=== PATIENT | female | born 1990 | race Caucasian/White ===

== ENCOUNTER → 2020-07-01 09:16 | Outpatient (CLI) | payer BC, SELFPAY ==
[2020-07-02 08:03] LABS: Mumps Virus IgG Antibody 59.8 AU/mL (Immune >10.9)
== END ==
PROVIDERS: PCP Family Medicine; Referring Provider Family Medicine; Visit Provider Family Medicine
DX: Z11.59 Encounter for screening for other viral diseases (principal); Z11.9 Encounter for screening for infectious and parasitic diseases, unspecified
CPT/HCPCS: 36415; 86735; 86765

== ENCOUNTER → 2021-10-15 10:08 | Outpatient (CLI) | payer OTHER, SELFPAY ==
[2021-10-15 11:32] LABS: Add Manual Diff / Slide Review NO; Basophils Absolute Auto 0 /uL (0-100); Basophils Percent Auto 0.6 % (0-2); Eosinophils Absolute Auto 100 /uL (0-450); Eosinophils Percent Auto 1.4 % (2-4); Hematocrit 40.4 % (36-46); Hemoglobin 13.6 g/dL (12.0-16.0); Lymphocytes Absolute Auto 1600 /uL (1100-4500); Lymphocytes Percent Auto 30.6 % (25-40); Mean Corpuscular HGB Conc 33.7 % (30-36); Mean Corpuscular Hemoglobin 26.9 PG (26-34); Mean Corpuscular Volume 79.9 fL (80-100); Monocytes Absolute Auto 400 /uL (0-900); Monocytes Percent Auto 7.6 % (3-14); Neutrophils Absolute Auto 3100 /uL (1500-7000); Neutrophils Percent Auto 59.8 % (50-75); Platelet Count 203 X10^3/uL (150-400); Red Blood Cell Count 5.05 X10^6/uL (4.0-5.2); Red Cell Distribution Width 12.9 % (11.6-14.8); White Blood Cell Count 5.2 X10^3/uL (4.5-11.0)
[2021-10-15 11:51] LABS: Alanine Aminotransferase 13 IU/L (<35); Albumin Globulin Ratio 1.5 (1.0-2.8); Alkaline Phosphatase 46 U/L (38-126); Aspartate Aminotransferase 17 IU/L (14-36); BUN Creatinine Ratio 20.4 (6-22); Bilirubin Total 0.5 mg/dL (0.2-1.3); Blood Urea Nitrogen 11 mg/dL (7-17); Calcium 9.2 mg/dL (8.4-10.2); Carbon Dioxide 29 mmol/L (22-32); Chloride 106 mmol/L (98-107); Estimated Glomerular Filt Rate > 60.0 mL/min (>60); Globulin 2.7 g/dL (1.7-4.1); Glucose 102 mg/dL (70-100); HEMOLYSIS < 15 (0-50); Magnesium 1.9 mg/dL (1.6-2.3); Potassium 4.3 mmol/L (3.4-5.1); Sodium 137 mmol/L (137-145); Total Protein 6.7 g/dL (6.3-8.2)
[2021-10-15 12:30] LABS: TSH w/ Reflex to FT4 0.13 uIU/mL (0.47-4.68)
[2021-10-15 12:55] LABS: Free T4, Direct Thyroxine 1.29 ng/dL (0.78-2.19)
== END ==
PROVIDERS: PCP Family Medicine; Referring Provider Family Medicine; Visit Provider Family Medicine
DX: R00.0 Tachycardia, unspecified (principal)
CPT/HCPCS: 36415; 80053; 83735; 84439; 84443; 85025

== ENCOUNTER → 2021-10-30 09:28 | Outpatient (CLI) | payer OTHER, SELFPAY ==
[2021-10-30 11:07] LABS: COVID19 -Nasal RAPID Negative (Negative)
== END ==
PROVIDERS: PCP Family Medicine; Visit Provider Family Medicine Sleep Medicine
DX: Z20.822 Contact with and (suspected) exposure to COVID-19 (principal)
CPT/HCPCS: 87635; C9803

== ENCOUNTER → 2021-11-02 12:50 | Outpatient (CLI) | payer OTHER, SELFPAY ==
--- NOTE | 2021-11-02 14:22 | PM.TREADMILL ---
Cardiac Stress Test Report Referral & Results Date Patient Seen: 11/02/21 Time Patient Seen: 14:00 Requesting provider: Jessica Boyd Indication: SOB, Chest discomfort Rest ECG: NSR Procedure Note: Today following both written and verbal informed consent, the patient was exercised according to a standard Artur protocol. The patient exercised for a total of 8 minutes 14 seconds achieving a maximum heart rate of 200. Patient's maximum systolic blood pressure was 159. This was an estimated 10.1 METs. Normal hemodynamic response to exercise. No rhythm changes. No ST deviations. No signs or symptoms of angina. Mild exercise impairment (FA I +10% on active scale). Rapid return to normal blood pressure and heart rate at rest. Impression: Low probability for ischemia. Reynolds treadmill score of 8 is correlated with 95% 5 year survival rate from cardiac causes of mortality. Please note: Actual ECG tracings can be found in the PACS system.
== END ==
PROVIDERS: PCP Family Medicine; Referring Provider Family Medicine; Visit Provider Family Medicine
DX: R07.89 Other chest pain (principal)
CPT/HCPCS: 93016; 93017; 93018; 93242

== ENCOUNTER → 2021-11-02 14:25 | Outpatient (CLI) | payer OTHER, SELFPAY ==
--- NOTE | 2021-11-18 09:16 | P.HOLT.S_ITS ---
Tank Assembler Report Referral & Results Date Patient Seen: 11/02/21 Requesting provider: Jessica Boyd Indication: Chest pain Duration of monitoring (days): 7 Diary information: There were 9 patient triggered events and 4 patient diary entries Patient triggered events were variably associated with (within 45 seconds) sinus rhythm, simple PVCs and ventricular trigeminy Patient diary events were variably associated with (within 45 seconds) sinus rhythm, PVCs and ventricular bigeminy Data: Minimum heart rate identified was 51 beats per minute at 07:36 on 11/07/2021 Maximum heart rate was 186 beats per minute at 14:12 on 11/04/2021 Less than 1% of identified beats were ventricular or supraventricular ectopic in origin, which would classify them as rare. There were no pauses or atrial fibrillation or SVT identified on this study Patient did have very brief runs of ventricular bigeminy and ventricular trigeminy that included a 21.8 second run of ventricular trigeminy and a 8.9 second run of ventricular bigeminy Impression: 7 day environmental monitoring specialist demonstrating rare ventricular ectopy as a possible source of patient's symptoms. No serious dysrhythmias identified on this study Clinical correlation suggested
== END ==
PROVIDERS: PCP Family Medicine; Referring Provider Family Medicine; Visit Provider Family Medicine
DX: R07.9 Chest pain, unspecified (principal)
CPT/HCPCS: 93242; 93244

== ENCOUNTER → 2022-05-13 12:52 | Outpatient (CLI) | payer OTHER, SELFPAY ==
[2022-05-13 14:58] LABS: TSH w/ Reflex to FT4 0.36 uIU/mL (0.47-4.68)
[2022-05-13 16:14] LABS: Free T4, Direct Thyroxine 1.31 ng/dL (0.78-2.19)
== END ==
PROVIDERS: PCP Family Medicine; Referring Provider Family Medicine; Visit Provider Family Medicine
DX: E05.90 Thyrotoxicosis, unspecified without thyrotoxic crisis or storm (principal)
CPT/HCPCS: 36415; 84439; 84443

== ENCOUNTER 2023-06-11 20:17 | Emergency (ER) | payer OTHER, SELFPAY ==
[2023-06-11] VITALS (9 sets, daily range): BP systolic 107–138; BP diastolic 68–101; PULSE 60–78; RESP 16–22; TEMP 36.8; O2SAT 96–100; BMI 43.4
--- NOTE | 2023-06-11 20:38 | ED.GENADULT ---
HPI - General Adult General Chief complaint: Urogenital-Female Stated complaint: kidney pain x2 hours Time Seen by Provider: 06/11/23 20:24 Source: patient and family Mode of arrival: Ambulatory History of Present Illness HPI narrative: Patient is a 33-year-old female. She states that a couple weeks ago she started to have symptoms that she thought were consistent with a urinary tract infection. She then had some left flank pain. A couple days later she did pass what she thinks is a kidney stone. She is never had kidney stones in the past. She thought that her symptoms were actually improving but never completely went away and now for the past couple hours she has had pain in her left flank that she states is similar to her prior episode but feels like it is much worse. She is still having some urinary symptoms. No fevers. Has had 2 C-sections but no other abdominal surgeries. No vaginal bleeding. No diarrhea. Related Data Home Medications Medication Instructions Recorded Confirmed apremilast 30 mg tablet (Otezla) 30 mg PO BID 09/02/20 10/15/21 Previous Rx's Medication Instructions Recorded hydroxyzine HCl 25 mg tablet See Rx Instructions .Route 01/26/23 .COMPLEX #30 tabs eletriptan 40 mg tablet 40 mg PO ONCE one tab at onset of 03/22/23 migraine, may repeat in 2 hrs #12 tabs propranolol 20 mg tablet 20 mg PO BID #60 tabs 05/31/23 hydrocodone 5 mg-acetaminophen 325 1 tab PO Q4-6H PRN pain #14 tabs 06/12/23 mg tablet ondansetron 4 mg disintegrating 4 mg PO Q6H PRN nausea and 06/12/23 tablet vomiting #10 tabs tamsulosin 0.4 mg capsule (Flomax) 0.4 mg PO DAILY #14 caps 06/12/23 Allergies Allergy/AdvReac Type Severity Reaction Status Date / Time erythromycin base Allergy Unknown Verified 09/02/20 13:33 [ERYTHROMYCIN BASE] amoxicillin Allergy Verified 06/11/23 20:26 betamethasone AdvReac Mild REDNESS Verified 09/02/20 13:33 [From LOTRISONE] AND INFLAMMATION clotrimazole [From LOTRISONE] AdvReac Mild REDNESS Verified 09/02/20 13:33 AND INFLAMMATION Sulfa (Sulfonamide AdvReac Mild REDNESS Verified 09/02/20 13:33 Antibiotics) AND [SULFA (SULFONAMIDE INFLAMMATION ANTIBIOTICS)] Review of Systems Constitutional Constitutional: Reports system reviewed and no additional complaints, except as documented Gastrointestinal Gastrointestinal: Reports system reviewed and no additional complaints, except as documented Genitourinary Genitourinary: Reports system reviewed and no additional complaints, except as documented Musculoskeletal Musculoskeletal: Reports system reviewed and no additional complaints, except as documented Integumentary/Breasts Skin/Breast: Reports system reviewed and no additional complaints, except as documented Neurologic Neurologic: Reports system reviewed and no additional complaints, except as documented Hematologic/Lymphatic On Anticoagulants: No Patient History Medical History Family history of coronary artery disease Morbid obesity with BMI of 40.0-44.9, adult Psoriasis Migraine without status migrainosus, not intractable (09/06/16) Surgical History Status post delivery (01/14/11) Status post delivery (10/14/14) Status post dilation and curettage (10/14/14) Family History Mother Age: 69 High cholesterol Grandmother Age: 83 Hypertension Sister Age: 55 Breast cancer Social History Smoking Status: Never smoker Smoking Status: Never smoker Substance Use Type: does not use Exam Initial Vital Signs Initial Vital Signs: Vital Signs Temperature 98.2 F 06/11/23 20:20 Pulse Rate 75 06/11/23 20:20 Respiratory Rate 22 06/11/23 20:20 Blood Pressure 138/101 H 06/11/23 20:20 Pulse Oximetry 99 06/11/23 20:20 Oxygen Delivery Method Room Air 06/11/23 20:20 HENMT Head: normal to inspection and normocephalic Resp Effort & Inspection: normal respiratory effort Cardio Rate: regular rate GI Inspection: normal to inspection and non-distended Back/Spine/Pelvis Back: CVA tenderness left Skin General: no rashes or lesions noted Extrem General: normal to inspection and capillary refill normal Course Orders Ordered: ED Orders 06/11/23 20:30 Complete Blood Count AUTO DIFF Stat Comprehensive Metabolic Panel Stat Lipase Stat Urinalysis and Microscopic Stat Urine Culture Stat 06/11/23 20:37 CT kidney ureter bladder (KUB) Stat Discontinued Medications Hydrocodone Bitart/Acetaminophen (Hydrocodone/Acet 5/325 Tablet) 1 tab PO NOW ONE Stop: 06/11/23 22:04 Last Admin: 06/11/23 22:20 Dose: 1 tab Documented By: CHELSIE Hydrocodone Bitart/Acetaminophen (Hydrocodone/Acet 5/325 Prepack) 1 bottle MISC SEEINSTR ONE Stop: 06/12/23 00:03 Hydromorphone HCl (Hydromorphone 1 Mg Inj) 1 mg IV NOW ONE Stop: 06/11/23 21:01 Last Admin: 06/11/23 21:03 Dose: 1 mg Documented By: CHELSIE Lidocaine HCl 8 ml/ Sodium (Chloride) 58 mls @ 348 mls/hr IV NOW ONE Stop: 06/11/23 22:04 Last Infusion: 06/11/23 22:32 Dose: Infused Documented By: Admin: 06/11/23 22:21 Dose: 348 mls/hr Documented By: CHELSIE Ketorolac Tromethamine (Ketorolac 30 Mg/Ml Vial) 30 mg IV NOW ONE Stop: 06/11/23 20:38 Last Admin: 06/11/23 20:43 Dose: 30 mg Documented By: CHELSIE Morphine Sulfate (Morphine 4 Mg/Ml Inj) 4 mg IV NOW ONE Stop: 06/11/23 23:13 Last Admin: 06/11/23 23:19 Dose: 4 mg Documented By: CHELSIE Ondansetron HCl (Ondansetron 4 Mg/2 Ml Inj) 4 mg IV NOW ONE Stop: 06/11/23 21:47 Last Admin: 06/11/23 21:49 Dose: 4 mg Documented By: CHELSIE Ondansetron HCl (Ondansetron 4 Mg Odt Prepack) 1 bottle MISC SEEINSTR ONE Stop: 06/12/23 00:03 Tamsulosin HCl (Tamsulosin 0.4 Mg Capsule) 0.4 mg PO NOW ONE Stop: 06/12/23 00:05 Vital Signs Vital signs: Vital Signs - 8 hr 06/11/23 20:20 06/11/23 21:06 06/11/23 21:06 Temperature 98.2 F Pulse Rate 75 77 Respiratory Rate 22 18 Blood Pressure 138/101 H 134/83 Pulse Oximetry 99 98 Oxygen Delivery Method Room Air 10/14/23 21:30 06/11/23 21:33 06/11/23 21:33 Temperature Pulse Rate 68 65 Respiratory Rate Blood Pressure 124/82 Pulse Oximetry 97 96 Oxygen Delivery Method 06/11/23 22:00 06/11/23 22:27 06/11/23 22:27 Temperature Pulse Rate 60 64 Respiratory Rate 18 Blood Pressure 118/81 Pulse Oximetry 98 97 Oxygen Delivery Method 06/11/23 22:30 06/11/23 22:30 06/11/23 23:00 Temperature Pulse Rate 68 Respiratory Rate 20 Blood Pressure 125/87 107/68 Pulse Oximetry 97 Oxygen Delivery Method 06/11/23 23:00 06/11/23 23:30 06/11/23 23:30 Temperature Pulse Rate 78 61 Respiratory Rate 18 16 Blood Pressure 119/73 Pulse Oximetry 100 99 Oxygen Delivery Method 06/12/23 00:00 06/12/23 00:00 Temperature Pulse Rate 59 L Respiratory Rate 18 Blood Pressure 116/74 Pulse Oximetry 99 Oxygen Delivery Method Medical Decision Making Lab Data Lab results reviewed: Yes I reviewed the patient's lab results. 06/11/23 20:30 06/11/23 20:30 Labs: Lab Results 06/11/23 Range/Units 20:30 WBC 10.0 (4.5-11.0) X10^3/uL RBC 5.41 H (4.0-5.2) X10^6/uL Hgb 14.2 (12.0-16.0) g/dL Hct 42.2 (36-46) % MCV 78.0 L (80-100) fL MCH 26.3 (26-34) PG MCHC 33.8 (30-36) % RDW 13.7 (11.6-14.8) % Plt Count 304 (150-400) X10^3/uL Neut % (Auto) 72.9 (50-75) % Lymph % (Auto) 20.2 L (25-40) % [place] % (Auto) 5.2 (3-14) % Eos % (Auto) 1.3 L (2-4) % Baso % (Auto) 0.4 (0-2) % Neut # (Auto) 7300 H (0692-4309) /uL Lymph # (Auto) 2000 (2667-8160) /uL [place] # (Auto) 500 (0-900) /uL Eos # (Auto) 100 (0-450) /uL Baso # (Auto) 0 (0-100) /uL Sodium 141 (137-145) mmol/L Potassium 4.1 (3.4-5.1) mmol/L Chloride 104 (98-107) mmol/L Carbon Dioxide 26 (22-32) mmol/L BUN 15 (7-17) mg/dL Creatinine 0.67 (0.52-1.04) mg/dL Estimated GFR > 60 (>60) mL/min BUN/Creatinine Ratio 22.4 H (6-22) Glucose 79 (70-100) mg/dL Calcium 9.9 (8.4-10.2) mg/dL Total Bilirubin 0.4 (0.2-1.3) mg/dL AST 23 (14-36) IU/L ALT 22 (<35) IU/L Alkaline Phosphatase 61 (38-126) U/L Total Protein 7.8 (6.3-8.2) g/dL Albumin 4.3 (3.5-5.0) g/dL Globulin 3.5 (1.7-4.1) g/dL Albumin/Globulin Ratio 1.2 (1.0-2.8) Lipase 146 (23-300) U/L Urine Color Yellow Urine Appearance Cloudy Urine pH 5.5 (4.5-8.0) Ur Specific [place] >=1.030 H (1.000-1.035) Urine Protein 1+ H (Negative) Urine Glucose (UA) Negative (Negative) g/dL Urine Ketones Negative (NEGATIVE) Urine Occult Blood 1+ H (Negative) Urine Nitrate Negative (Negative) Urine Bilirubin Negative (NEGATIVE) Urine Urobilinogen 1.0 (0.2) E.U./dL Ur Leukocyte Esterase Negative (NEGATIVE) Urine RBC 1-5/hpf (0-5/HPF) Urine WBC 5-10/hpf H (0-5/HPF) Ur Squamous Epith Cells 5-10 /hpf H (0-5/HPF) Amorphous Sediment 1+ Urine Bacteria Moderate (10-30) H (None) Urine Mucus 1+ H (Negative) Ur Culture Indicated? Specimen cultured Point of Care Testing Test Results Negative Urine Dip Bedside Urine Glucose Negative Bedside Urine Bilirubin - Negative Bedside Urine Ketone - Negative Urine Specific [place] 1.03 Bedside Urine Occult Blood +++ Bedside Urine pH 6 Bedside Urine Protein +/- 15 Bedside Urine Urobilinogen - Negative Bedside Urine Nitrite - Negative Bedside Urine Leukocytes - Negative Esterase Point of care testing: Point of Care Testing Test Results Negative Urine Dip Bedside Urine Glucose Negative Bedside Urine Bilirubin - Negative Bedside Urine Ketone - Negative Urine Specific [place] 1.03 Bedside Urine Occult Blood +++ Bedside Urine pH 6 Bedside Urine Protein +/- 15 Bedside Urine Urobilinogen - Negative Bedside Urine Nitrite - Negative Bedside Urine Leukocytes - Negative Esterase Imaging Data CT scan - abdomen/pelvis: Radiologist's Impression: PROCEDURE: CT KIDNEY URETER BLADDER (KUB) INDICATIONS: L flank pain eval for stone TECHNIQUE: Axial sections were acquired from the lung bases to the pubic symphysis. Coronal and sagittal reformats were performed. For radiation dose reduction, the following was used: automated exposure control, adjustment of mA and/or kV according to patient size. COMPARISON: None. FINDINGS: Lower thorax: The lung bases are clear. Heart size normal. No hiatal hernia. Liver: Normal in size and attenuation. No contour deformity present. Biliary system: No calcified cholelithiasis or pericholecystic inflammation. No intra or extrahepatic bile duct dilatation. Pancreas: Unremarkable without mass or inflammation evident. Spleen: Normal in size and density. Adrenals: Normal morphology and density. Reproductive system: Unremarkable as visualized. Urinary system: 3 mm calculus at the left ureterovesical junction results in moderate left hydronephrosis and hydroureter. And no additional nonobstructing calculi bilaterally. No right hydronephrosis. Gastrointestinal system: The bowel is unremarkable without evidence of bowel obstruction or inflammation. The stomach appears unremarkable. Appendix: Normal appendix identified. No evidence of appendicitis. Peritoneal spaces: No mesenteric or retroperitoneal adenopathy. No free air. No free fluid. Vasculature: The IVC, aorta and iliac vasculature are unremarkable. Abdominal wall: Abdominal wall intact without evidence of ventral or inguinal hernias. Musculoskeletal: Normal bone mineralization. No acute fractures. IMPRESSION: 1. Moderate left hydronephrosis and hydroureter associated with 3 mm calculus in the left ureterovesical junction. MDM Narrative Medical decision making narrative: Urinalysis does not show signs of infection. Kidney functions unremarkable. CT scan does show 3 mm distal UVJ stone with mild hydro in the left. We did have some difficulty trying to control her discomfort however the patient is not septic. He is tolerating oral intake. Despite the stone only being 3 mm I did give her Flomax just because of the difficulty controlling her symptoms and if we can get any sort of relaxation and passage of the stone sooner I feel that that benefit outweighs any downsides of this medicine. Will send home with pain medicine and nausea medicine. She was also given information for follow-up with urology if needed. She was given return precautions. She expressed understanding and agreement. Discharge Plan Departure Patient Disposition: Home Clinical Impression: Left ureteral stone Instructions: DI for Kidney Stones Activity Restrictions/Additional Instructions: Be sure that you are staying hydrated. Take the nausea medication on the pain medication as needed. Return to the emergency department for new or worsening symptoms like we discussed. Prescriptions: New tamsulosin [Flomax] 0.4 mg capsule 0.4 mg PO DAILY Qty: 14 0RF ondansetron 4 mg tablet,disintegrating 4 mg PO Q6H PRN (Reason: nausea and vomiting) Qty: 10 0RF hydrocodone-acetaminophen 5-325 mg tablet 1 tab PO Q4-6H PRN (Reason: pain) Qty: 14 0RF No Action Otezla 30 mg tablet 30 mg PO BID hydroxyzine HCl 25 mg tablet See Rx Instructions .ROUTE .COMPLEX Qty: 30 2RF Dose Instruction: TAKE ONE TABLET BY MOUTH NIGHTLY AT BEDTIME NEEDED FOR INSOMNIA Rx Instructions: TAKE ONE TABLET BY MOUTH NIGHTLY AT BEDTIME NEEDED FOR INSOMNIA eletriptan 40 mg tablet 40 mg PO ONCE Qty: 12 2RF propranolol 20 mg tablet 20 mg PO BID Qty: 60 1RF Referrals: Celia Albarran MD [Physician] - Jessica Boyd DO [Primary Care Provider] - Stand Alone Forms: Patient Portal/API
[2023-06-11] MEDS: KETOROLAC 30 MG/ML VIAL IV (20:43)
[2023-06-11 20:45] LABS: Appearance Urine UA CLOUDY; Bilirubin Urine UA NEGATIVE (NEGATIVE); Color Urine UA YELLOW; Glucose Urine UA NEGATIVE (Negative); Ketones Urine UA NEGATIVE (NEGATIVE); Leukocyte Esterase Urine UA NEGATIVE (NEGATIVE); Nitrite Urine UA NEGATIVE (Negative); Occult Blood Urine UA 1+ (Negative); Protein Urine UA 1+ (Negative); Specific Gravity Urine UA >=1.030 (1.000-1.035)
[2023-06-11 20:46] LABS: pH Urine UA 5.5 (4.5-8.0)
[2023-06-11 20:48] LABS: Add Manual Diff / Slide Review NO; Basophils Absolute Auto 0 /uL (0-100); Basophils Percent Auto 0.4 % (0-2); Eosinophils Absolute Auto 100 /uL (0-450); Eosinophils Percent Auto 1.3 % (2-4); Hematocrit 42.2 % (36-46); Hemoglobin 14.2 g/dL (12.0-16.0); Lymphocytes Absolute Auto 2000 /uL (1100-4500); Lymphocytes Percent Auto 20.2 % (25-40); Mean Corpuscular HGB Conc 33.8 % (30-36); Mean Corpuscular Hemoglobin 26.3 PG (26-34); Monocytes Absolute Auto 500 /uL (0-900); Monocytes Percent Auto 5.2 % (3-14); Neutrophils Absolute Auto 7300 /uL (1500-7000); Neutrophils Percent Auto 72.9 % (50-75); Platelet Count 304 X10^3/uL (150-400); Red Blood Cell Count 5.41 X10^6/uL (4.0-5.2); Red Cell Distribution Width 13.7 % (11.6-14.8)
[2023-06-11 20:49] LABS: Alanine Aminotransferase 22 IU/L (<35); Albumin 4.3 g/dL (3.5-5.0); Albumin Globulin Ratio 1.2 (1.0-2.8); Alkaline Phosphatase 61 U/L (38-126); Aspartate Aminotransferase 23 IU/L (14-36); BUN Creatinine Ratio 22.4 (6-22); Bilirubin Total 0.4 mg/dL (0.2-1.3); Blood Urea Nitrogen 15 mg/dL (7-17); Calcium 9.9 mg/dL (8.4-10.2); Carbon Dioxide 26 mmol/L (22-32); Chloride 104 mmol/L (98-107); Estimated Glomerular Filt Rate > 60 mL/min (>60); Globulin 3.5 g/dL (1.7-4.1); Glucose 79 mg/dL (70-100); HEMOLYSIS < 15 (0-50); Lipase 146 U/L (23-300); Potassium 4.1 mmol/L (3.4-5.1); Sodium 141 mmol/L (137-145); Total Protein 7.8 g/dL (6.3-8.2)
[2023-06-11 20:55] LABS: Amorphous Sediment Urine 1+; Bacteria Urine Moderate (10-30); Culture Indicated Urine Specimen Cultured; Mucus Urine 1+ (Negative); RBC Urine 1-5/HPF (0-5/HPF); Squamous Epithelial Cell Urine 5-10 /HPF (0-5/HPF); WBC Urine 5-10/HPF (0-5/HPF)
[2023-06-11] MEDS: HYDROMORPHONE 1 MG INJ IV (21:03)
[2023-06-11] MEDS: ONDANSETRON 4 MG/2 ML INJ IV (21:49)
[2023-06-11] MEDS: HYDROCODONE/ACET 5/325 TABLET 1 TAB PO (22:20)
[2023-06-11] MEDS: LIDOCAINE 2% (PF) 8 ML in SODIUM CHLORIDE 0.9% 50 ML 348 ML IV (22:21)
[2023-06-11] MEDS: MORPHINE 4 MG/ML INJ IV (23:19)
[2023-06-12] VITALS: BP 116/74; PULSE 59; RESP 18; O2SAT 99
[2023-06-12] MEDS: HYDROCODONE/ACET 5/325 PREPACK 1 BOTTLE MISC (00:07)
[2023-06-12] MEDS: ONDANSETRON 4 MG ODT PREPACK 1 BOTTLE MISC (00:07)
[2023-06-12] MEDS: TAMSULOSIN 0.4 MG CAPSULE PO (00:12)
== END 2023-06-12 00:24 | disposition home or self-care (01) ==
PROVIDERS: Emergency Provider Emergency Medicine; PCP Family Medicine
DX: N20.1 Calculus of ureter (principal); Z87.442 Personal history of urinary calculi
CPT/HCPCS: 36415; 74176; 80053; 81001; 81003; 81025; 83690; 85025; 87077; 87086; 87186; 96374; 96375; 99284; J1170; J1885; J2270; J2405